=== PATIENT | female | born 1925 | race Caucasian/White ===

== ENCOUNTER 2016-10-24 12:36 | Inpatient (IN) | payer OTHER ==
[~2016-10-24] VITALS: Ht 172.7 cm; Wt 68.7 kg
--- NOTE | ~2016-10-24 | HC ---
[facility] [place] [address] CONSULTATION Name: ROSY REEVES Gretta Room #: 313-P [facility] IN ..#: [id number] Admission: 10/24/16 Attend Phys: Rosalinda Carreno Discharge: Date of : [birth year] Report #: [id number] THIS REPORT FOR: //name// CC: Trevor Fuentes REASON FOR CONSULTATION: Left hip fracture. HISTORY OF PRESENT ILLNESS: The patient is an 89-year-old female who was at her single level home yesterday when she twisted and fell onto her left hip. She apparently was able to ambulate after this event, but had persistent left hip pain and presented to the Emergency Department via EMS. She denied loss of consciousness. She reports tripping. Denied any other complaints. She reports left hip pain. REVIEW OF SYSTEMS: GENERAL: Denies lightheadedness or dizziness. MUSCULOSKELETAL: See HPI, denies other complaints. NEUROLOGIC: Denies numbness or tingling in her extremities. PAST MEDICAL HISTORY: Significant for rkf-anrigdp-taszabfme diabetes. PAST SURGICAL HISTORY: Cholecystectomy and hysterectomy. ALLERGIES: IODINE. HOME MEDICATIONS: Reported include aspirin, vitamin B12, ferrous sulfate, multivitamins, metformin, Lutein, oxybutynin. SOCIAL HISTORY: She reports living at home with her in their single krzysztof home. She denies use of any ambulatory aids. She reports ____. Denies smoking, denies drinking alcohol. She is right hand dominant. LABORATORY STUDIES: Done on 10/24/2016 show white blood cell count 12, hemoglobin 12, hematocrit 34.2, platelet count 372. Chemistry is grossly normal with slightly low sodium at 133. INR is 1. PHYSICAL EXAMINATION: GENERAL: She is alert and oriented, interacts appropriately. She is well-developed, well-nourished female in no acute distress. VITAL SIGNS: Most recent vital signs show temperature of 36.9, heart rate is 90, respiratory rate 18, blood pressure 147/62, and pulse oximetry is 95% on room air. EXTREMITIES: Examination of her bilateral upper extremities, skin is clean, dry and intact. She has brisk capillary refill. She has no tenderness to palpation to the bilateral sternum and clavicles, bilateral shoulders, arms, elbows, forearms, wrists and hands. There is functional motion of all these joints. She has no pain with range of motion of any of her joints on the upper [address] [address] CONSULTATION Name: ROSY REEVES Room #: 313-P [facility] IN [facility]#: [id number] Admission: 10/24/16 Attend Phys: Rosalinda Carreno Discharge: Date of : 01/[birth year] Report #: [id number] extremities. Bilateral lower extremities, she has 2+ dorsalis pedis pulses. Wiggles her toes. There is no tenderness to palpation to the bilateral thighs, knees, legs, ankles, or feet. No pain with range of motion of bilateral knees, ankles or feet. No pain with range of motion of the right hip, moderate pain with range of motion of the left hip. RADIOGRAPHS: Pelvis AP and a suboptimal lateral of the left hip show a valgus impacted femoral neck fracture. IMPRESSION AND PLAN: Left valgus impacted femoral neck fracture in an 89-year-old patient. I discussed the diagnosis as well as treatment options. I discussed the recommendation for surgical stabilization in order for her to be able to be ambulatory. However, I did discuss that she will not be able to put weight on her leg for approximately 6 weeks. I discussed I would like to repeat the lateral view in order to get a cross table lateral. I would like for her to be medically evaluated and cleared by her primary care doctor, Dr. Barry Fuentes and plan to have her surgery done later either this morning by my partner, Dr. Jose Hutchins or one of my other partner ____ later this afternoon. The risks, benefits, alternatives, complications were discussed including not limited to infection, damage to vessels or nerves, nonunion, malunion, hardware failure, hardware irritation decreased ambulatory level. She will most likely need an anticoagulant postoperatively for a short period of time. Questions were answered to the best of my ability. We will wait a medical evaluation clearance. By: [id number] [id number] Taniya Levin MD /nt
--- NOTE | ~2016-10-24 | EKG ---
[place] [address] [address] [facility] [place] [address] ELECTROCARDIOGRAM REPORT Name: ROSY REEVES Gretta Room #: 313-P ADM IN M.R.#: [id number] Admission: 10/24/16 Attend Phys: Rosalinda Carreno Discharge: Date of : [birth year] Report #: [id number] THIS REPORT FOR: //name// [facility] ED Test Date: 2016-10-24 Test Time: 13:06:26 Pat Name: ROSY REEVES Department: Room: [facility] Gender: F [employer] Operator: [id number] : [id number] Requested By: Jade Mauro Order Number: [id number] MD: Arnulfo Perez Measurements Intervals Tobias Rate: 84 P: 40 RI: 212 QRS: -46 QRSD: 129 T: 64 QT: 379 QTc: 449 Interpretive Statements Sinus rhythm Borderline prolonged RI interval LVH with IVCD, LAD and secondary repol abnrm Anterior ST elevation, probably due to LVH Electronically Signed On 10-25-2016 16:38:51 CDT by Arnulfo Perez [email or web address] <ELECTRONICALLY SIGNED> By: Arnulfo Perez MD 10/25/16 1638 1306 05 Arnulfo Perez MD /JAMAAL
--- NOTE | ~2016-10-24 | H ---
[facility] [place] [address] HISTORY AND PHYSICAL Name: ROSY REEVES Room #: 313-P [facility] IN ..#: [id number] Admission: 10/24/16 Attend Phys: Rosalinda Carreno Discharge: Date of : [birth year] Report #: [id number] THIS REPORT FOR: //name// CC: Trevor Fuentes DATE OF SERVICE: 10/24/2016 CHIEF COMPLAINT: Left hip pain. HISTORY OF PRESENT ILLNESS: The patient is an 89-year-old female who was admitted through the Emergency Room with left hip pain. It sounds like she was getting up from kitchen chair when she was turning to stand up and lost her balance. She said it felt like her leg "buckled" underneath her and she went to the ground. She was having pain in the left upper leg and was unable to stand or walk. X-rays revealed left femoral neck fracture. PAST MEDICAL HISTORY: Diabetes type 2, urge incontinence. PAST SURGICAL HISTORY: Hysterectomy, cholecystectomy. FAMILY HISTORY: Noncontributory. SOCIAL HISTORY: She is and lives at home. No chronic alcohol or tobacco use. ALLERGIES: IODINE. MEDICATIONS: Aspirin, B12, iron, multivitamin, metformin 500 mg b.i.d., oxybutynin 5 mg b.i.d. REVIEW OF SYSTEMS: She denies headache, chest pain, shortness of breath, abdominal pain, nausea, vomiting, diarrhea, constipation, dysuria, syncope. OBJECTIVE: VITAL SIGNS: Temperature 37.2, pulse 83, respirations 24, blood pressure 136/65, O2 sat 95% on room air. GENERAL: She is awake and alert, in no distress. HEENT: Unremarkable. LUNGS: Clear. HEART: Regular. ABDOMEN: Soft, normoactive bowel sounds. EXTREMITIES: No edema. She has pain in the left hip. Distal pulses 2+. NEUROLOGIC: She is alert and oriented. Cranial nerves intact. Global strength 3/5 throughout. LABORATORY DATA AND IMAGING: Lab and x-rays reviewed. EKG reveals sinus [facility] [address] [place] [address] HISTORY AND PHYSICAL Name: ROSY REEVES Gretta Room #: 313-[facility] IN ..#: [id number] Admission: 10/24/16 Attend Phys: Rosalinda Carreno Discharge: Date of : [birth year] Report #: [id number] rhythm. ASSESSMENT: 1. Left proximal femur fracture. 2. Diabetes type 2. 3. Accidental fall. 4. Gait disturbance. PLAN: She is medically cleared to proceed with surgery today. I will add IV fluids awaiting surgery later this morning. Social work to assist with rehabilitation options postoperatively. <ELECTRONICALLY SIGNED> By: Jose Martell MD 10/25/16 1110 0824 0851 Jose Martell MD /nt
--- NOTE | ~2016-10-24 | HC ---
[facility] [place] [address] CONSULTATION Name: ROSY REEVES Gretta Room #: 313-P ADM IN .R.#: [id number] Admission: 10/24/16 Attend Phys: Rosalinda Carreno Discharge: Date of : [birth year] Report #: [id number] THIS REPORT FOR: //name// CC: Trevor Fuentes DATE OF SERVICE: 10/25/2016 HISTORY OF PRESENT ILLNESS: This 89-year-old female remains alert and fairly independent, living at home with her . I believe she fell injuring the left hip. X-rays confirm a mildly impacted femoral neck fracture with slight valgus position, but overall very acceptable position of the femoral head and neck. She sustained no other injuries. Objectively she does have some discomfort with left hip, but no obvious deformity or shortening. She has no other apparent injuries. We discussed with the patient and her the nature of this injury and treatment options including either nonsurgical management with observation and protection or surgical treatment with either percutaneous screw fixation or hemiarthroplasty. We have reviewed the potential risks and benefits of each approach and they prefer to go ahead with percutaneous screw stabilization. Pending OR availability and medical clearance, we will plan to proceed today on October 25. <ELECTRONICALLY SIGNED> By: Jose Hutchins MD 10/26/16 0814 1121 1216 Jose Hutchins MD /nt
--- NOTE | ~2016-10-24 | O ---
[facility] [place] [address] OPERATIVE REPORT Name: ROSY REEVES Gretta Room #: 313-P ADM IN M.R.#: [id number] Admission: 10/24/16 Attend Phys: Rosalinda Carreno Discharge: Date of : [birth year] Report #: [id number] THIS REPORT FOR: //name// CC: Trevor Fuentes DATE OF SERVICE: 10/25/2016 PREOPERATIVE DIAGNOSIS: Left femoral neck fracture. POSTOPERATIVE DIAGNOSIS: Left femoral neck fracture. PROCEDURE: Percutaneous screw stabilization of left femoral neck fracture in satisfactory mild valgus impacted position. SURGEON: Jose Hutchins MD INDICATIONS: This frail, but still active and ambulatory 89-year-old female fell injuring the left hip. X-rays revealed a slightly impacted valgus position femoral neck fracture. I have discussed with the patient and her the nature of the injury and treatment options, they have elected to go ahead with surgical stabilization using percutaneous screws. DESCRIPTION OF PROCEDURE: The patient was taken to the operating room where she was placed under brief general anesthetic. She was positioned on the fracture table so that the left hip could be visualized with C-arm. The lateral aspect of the hip and thigh were meticulously prepped and draped. Under C-arm guidance, three guide wires were placed positioning these in the mid to lower aspect of the femoral head and spacing them out adequately. Once good positioning of the guidewires was established, these were overreamed and then 6.5 mm diameter [employer] cannulated screws were placed over the guidewires using three 90 mm length screws. These were advanced under C-arm visualization to a point just below the subchondral bone at the femoral head. The fracture seems to be in an anatomic position with just slight valgus positioning, which seems to be stable. Purchase of the screws was adequate, although the bone is somewhat soft. The small lateral skin incision was then irrigated. The deeper tissues were closed with 0 Monocryl and 2-0 Monocryl. The skin was closed with skin maxx. A sterile dressing was applied. The patient was then awakened and returned to recovery room in satisfactory condition. <ELECTRONICALLY SIGNED> By: Jose Hutchins MD 10/26/16 0814 1206 1232 Jose Hutchins MD /nt
--- NOTE | ~2016-10-24 | D ---
[facility] [place] [address] DISCHARGE SUMMARY Name: ROSY REEVES Room #: 313-P [facility] IN M.R.#: [id number] Admission: 10/24/16 Attend Phys: Rosalinda Carreno Discharge: 10/28/16 Date of : [birth year] Report #: [id number] THIS REPORT FOR: //name// CC: Trevor Fuentes FINAL DIAGNOSES: 1. Left hip fracture. 2. Diabetes type 2. PROCEDURES: ORIF with IM nail to the left hip fracture. HOSPITAL COURSE: The patient was admitted with the left hip fracture. She was stabilized and seen by orthopedics and taken to the operating room. Please see that separately dictated note. Postoperatively, medically, she was stable. However, she was very anxious due to the fracture and her change in lifestyle. She is toe-touch weightbearing and would require fpc rehabilitation. PHYSICAL EXAMINATION: GENERAL: On the day of discharge, she was awake and alert. VITAL SIGNS: Stable vital signs. Lab work was stable. LUNGS: Clear. HEART: Regular. ABDOMEN: Soft. EXTREMITIES: No edema. She remained on Lovenox DVT prophylaxis. DISPOSITION: She will be transferred to [facility] for rehabilitation efforts with toe-touch weightbearing, diet and activity as tolerated. Otherwise, follow up with me upon significant discharge and with Dr. Hutchins in 4 weeks. I signed her transfer medication list including Lovenox for an additional 3-1/2 weeks for DVT prophylaxis. <ELECTRONICALLY SIGNED> By: Jose Martell MD 10/29/16 1021 1037 1100 Jose Martell MD /nt
[2016-10-24 12:36] VITALS: BP 143/54
[~2016-10-24 12:36] MED LIST: ACTONEL PO; ASPIR 8181 MG PO; CALCIUM 500 +1 EAC5 PO; FISH OIL 1,0001 EAC5 PO; IRON325 PO; METFORMIN HCL500 MG PO; METFORMIN PO; MULTIVITAMINS PO; NORCO 5-325 TA1 EACH PO; PERCOCET 5-3251 EACH PO; PERCOCET PO; VITAMIN B-12500 MCG PO; VITAMIN E600 UNIT PO; ZOCOR40 MG PO
[2016-10-24 13:00] VITALS: BP 153/85
[2016-10-24] MEDS ORDERED: LUTEIN10 MG PO (13:03)
[2016-10-24] MEDS ORDERED: OXYBUTYNIN 5 MG5 M2 PO (13:04)
[2016-10-24 13:23] LABS: ABSOLUTE NEUTROPHILS 8.7 thou/uL (1.4-8.2); BASOPHILS 0.3 % (0.0-2.0); EOSINOPHILS 0.5 % (0.0-3.0); HEMATOCRIT 34.2 % (37.0-47.0); LYMPHOCYTES 19.9 % (24.0-44.0); MCH 31.5 pg (26.0-34.0); MCHC 35.1 g/dL (28.0-37.0); MCV 89.6 fL (80.0-100.0); PLATELET COUNT 372 thou/uL (150-400); POLYS 72.3 % (36.0-66.0); RBC 3.82 mil/uL (4.20-5.00); RDW 13.4 % (10.5-14.5)
[2016-10-24 13:27] LABS: MANUAL DIFF NO
[2016-10-24 13:39] LABS: CALCIUM 9.4 mg/dL (8.5-10.1); CREATININE 0.8 mg/dL (0.6-1.0)
[2016-10-24 13:41] LABS: APTT 24.1 Seconds (24.5-32.8); PROTIME 10.2 Seconds (9.3-11.4)
[2016-10-24 13:51] VITALS: BP 143/54
[2016-10-24 15:25] VITALS: BP 156/74
[2016-10-24 19:25] VITALS: BP 147/77
[2016-10-25] VITALS (7 sets, daily range): BP systolic 136–160; BP diastolic 62–78
[2016-10-26 04:24] LABS: HEMATOCRIT 31.5 % (37.0-47.0); HEMOGLOBIN 10.8 gm/dL (12.0-15.0); MCH 31.2 pg (26.0-34.0); MCHC 34.3 g/dL (28.0-37.0); MCV 91.1 fL (80.0-100.0); RBC 3.45 mil/uL (4.20-5.00); RDW 13.3 % (10.5-14.5); WBC 15.4 thou/uL (4.0-11.0)
[2016-10-26 04:35] LABS: CALCIUM 8.7 mg/dL (8.5-10.1); CREATININE 0.7 mg/dL (0.6-1.0); POTASSIUM 3.6 mmol/L (3.5-5.1)
[2016-10-26 07:13] VITALS: BP 136/68
[2016-10-26 08:37] VITALS: BP 136/68
[2016-10-26 12:03] VITALS: BP 123/56
[2016-10-26 12:06] VITALS: BP 123/56
[2016-10-26 16:14] VITALS: BP 129/77
[2016-10-26 20:30] VITALS: BP 135/63
[2016-10-27 04:30] VITALS: BP 143/71
[2016-10-27 06:53] LABS: HEMATOCRIT 31.9 % (37.0-47.0); MCHC 34.5 g/dL (28.0-37.0); RBC 3.54 mil/uL (4.20-5.00); RDW 13.2 % (10.5-14.5); WBC 12.3 thou/uL (4.0-11.0)
[2016-10-27 07:01] LABS: CALCIUM 8.5 mg/dL (8.5-10.1); CREATININE 0.6 mg/dL (0.6-1.0); POTASSIUM 3.7 mmol/L (3.5-5.1)
[2016-10-27 08:15] VITALS: BP 146/62
[2016-10-27 08:44] VITALS: BP 146/62
[2016-10-27 16:45] VITALS: BP 160/71
[2016-10-27 19:37] VITALS: BP 166/80
[2016-10-28 04:05] LABS: HEMATOCRIT 31.5 % (37.0-47.0); HEMOGLOBIN 10.8 gm/dL (12.0-15.0); MCH 30.8 pg (26.0-34.0); MCHC 34.2 g/dL (28.0-37.0); MCV 90.1 fL (80.0-100.0); RBC 3.5 mil/uL (4.20-5.00); RDW 13.4 % (10.5-14.5); WBC 11.2 thou/uL (4.0-11.0)
[2016-10-28 04:06] LABS: CALCIUM 8.8 mg/dL (8.5-10.1); CREATININE 0.5 mg/dL (0.6-1.0); POTASSIUM 3.6 mmol/L (3.5-5.1)
[2016-10-28 04:38] VITALS: BP 159/67
[2016-10-28 07:52] VITALS: BP 155/63
[2016-10-28 08:00] VITALS: BP 155/63
[2016-10-28] MEDS ORDERED: ENOXAPARIN40 MG/0.1 SUBQ (10:31)
[2016-10-28] MEDS ORDERED: TRAMADOL 50 MG50 MG PO (10:31)
[2016-10-28] MEDS ORDERED: SERTRALINE HCL25 M1 PO (10:32)
[2016-10-28] MEDS ORDERED: NYSTATIN15 G1 TOP (10:36)
[2016-10-28] MEDS ORDERED: TRIAMCINOLONE A80 G2 TOP (10:36)
== END 2016-10-28 16:42 | DRG 482 ==
LOC: ER 12:36 → EROBS 13:15 → 3N 13:15
PROVIDERS: Emergency Medicine; Internal Medicine Geriatric Medicine
PROC: 0QH706Z Insertion of Intramedullary Internal Fixation Device into Left Upper Femur, Open Approach (ICD-10-PCS; principal; 2016-10-25)
DX: S72.002A Fracture of unspecified part of neck of left femur, initial encounter for closed fracture (principal); E11.9 Type 2 diabetes mellitus without complications; Z90.710 Acquired absence of both cervix and uterus; Z90.49 Acquired absence of other specified parts of digestive tract; Z91.041 Radiographic dye allergy status; W18.39XA Other fall on same level, initial encounter; Y93.89 Activity, other specified; Y92.89 Other specified places as the place of occurrence of the external cause; Y99.8 Other external cause status; R26.9 Unspecified abnormalities of gait and mobility
CPT/HCPCS: 10094; 50010; 50101; 50386; 51412; 51538; 52304; 53400; 53404; 56525; 57092; 62110; 62900; 70005